=== PATIENT | female | born 1985 | race Caucasian/White ===

== ENCOUNTER 2017-05-10 15:44 | Emergency (ER) | payer MEDICAID ==
[~2017-05-10 15:44] MED LIST: ACE3 PO; ACE325 PO; AUG500 PO; AUG875 PO; CHOL100052 PO; CIPR-344 PO; CYC10 PO; GAB300 PO; HYDR1TAB PO; IBU600 PO; IBU800 PO; LEV100 PO; LEV125 PO; LEV175 PO; LEV2I PO; LEVO112T43 PO; LEVO150T72 PO; LOR5 PO; LOR5/325 PO; ONDA2VIA22 IV; ONDA4TAB PO; ONDA4VIA IJ; OSE75 PO; PER PO; PREN-67 PO; SENN-284 PO; [UNRECOGNIZED DRUG - CODE] IV; birth control patch
[2017-05-10] MEDS ORDERED: NS(*) 0.9% 1000 ML BAG 1,000 ML IV ONE (15:55)
[2017-05-10] MEDS ORDERED: ONDANSETRON 4 MG/2 ML VIAL IVP ONE (15:55)
--- NOTE | 2017-05-10 15:57 | ER Report ---
History and Physical Time Seen By MD: 15:55 Hx. of Stated Complaint: LUQ PAIN FOR 2 DAYS HPI/ROS CHIEF COMPLAINT: Epigastric right upper quadrant pain HISTORY OF PRESENT ILLNESS: Otherwise healthy 30 0 FEMRosalinda comes emergency Department today with complaint of epigastric and right upper quadrant pain that started several hours prior to presentation after she had she has had this in the past mostly after she eats patient describes the pain in the epigastric area is sharp stabbing localized radiation across the abdomen no right lower no left lower she is currently menstruating last menstrual cycle prior to was 28 days ago patient denies any vaginal bleeding or discharge denies any nausea vomiting or diarrhea no additional complaints at this time REVIEW OF SYSTEMS: Respiratory: No cough, no dyspnea. Cardiovascular: No chest pain, no palpitations. Gastrointestinal: Right upper and epigastric abdominal pain Musculoskeletal: No back pain. Remainder of the 14 system rev: Yes Allergies: Coded Allergies: No Known Allergies (Verified Allergy, Mild, 02/06/17) Home Meds Active Scripts Levothyroxine Sodium (LEVOTHYROXINE SODIUM) 0.125 Mg Tab, 1 TAB PO DAILY, #90 TAB 3 Refills Prov:DORCAS CHOWDHURY MD 02/13/17 Discontinued Reported Medications [ control patch] No Conflict Check 02/10/17 Cholecalciferol (Vitamin D3) (VITAMIN D) 1,000 Unit Tablet, 1000 UNIT PO DAILY 02/07/17 Discontinued Scripts Oseltamivir Phosphate (TAMIFLU) 75 Mg Cap, 75 MG PO DAILY for 10 Days, #10 CAP 0 Refills Prov:DORCAS CHOWDHURY MD 04/12/17 Ciprofloxacin Hcl (CIPRO) 500 Mg Tablet, 500 MG PO BID for 7 Days, #14 TAB 0 Refills DO NOT TAKE ZOFRAN WHILE TAKING THIS MEDICATION Prov:DORCAS CHOWDHURY MD 02/08/17 Ondansetron (ZOFRAN ODT) 4 Mg Tab.rapdis, 4 MG PO Q6H Y for NAUSEA/VOMITING, # 20 TAB.GERMAIN 0 Refills Prov:JEET PADILLA MD 02/06/17 Reviewed Nurses Notes: Yes Old Medical Records Reviewed: Yes Hx Smoking: No Smoking Status: Never Smoker, Former Smoker Exposure to Second Hand Smoke?: No Hx Substance Use Disorder: No Hx Alcohol Use: No Constitutional Vital Sign - Last 24 Hours 05/10/17 05/10/17 05/10/1718 15:49 15:50 15:59 16:00 Temp 98.1 Pulse 82 70 Resp 20 B/P (MAP) 131/87 (102) 131/87 120/87 (98) Pulse Ox 96 94 O2 Delivery Room Air 05/10/17 05/10/17 05/10/17 16:14 16:30 17:00 Pulse 61 B/P (MAP) 119/77 (91) 100/64 (76) Pulse Ox 94 Physical Exam General Appearance: The patient is alert, has no immediate need for airway protection and no current signs of toxicity. [ ] Eyes: Pupils equal and round no injection. Respiratory: Chest is non tender, lungs are clear to auscultation. Cardiac: regular rate and rhythm [ ] Gastrointestinal: Pain with mild to moderate palpation of the right upper quadrant and epigastric area mild guarding no rebound no masses otherwise unremarkable exam Musculoskeletal: Neck: Neck is supple and non tender. Extremities have full range of motion and are non tender. Skin: No rashes or lesions. [ ] DIFFERENTIAL DIAGNOSIS: After history and physical exam differential diagnosis was considered for pancreatitis gallstone pancreatitis gastritis Medical Decision Making Data Points Result Diagram: 05/10/17 1601 05/10/17 1601 Laboratory Hematology Test 05/10/17 15:47 05/10/17 16:01 Urine Color Yellow Urine Clarity Slightly-cloudy Urine pH 6.0 pH (4.8-9.5) Urine Specific [place] 1.023 Urine Protein Negative mg/dL (NEGATIVE) Urine Glucose (UA) Negative mg/dL (NEGATIVE) Urine Ketones Negative mg/dL (NEGATIVE) Urine Blood Negative (NEGATIVE) Urine Nitrite Negative (NEGATIVE) Urine Bilirubin Negative (NEGATIVE) Urine Urobilinogen 2.0 mg/dL (0.2-1.9) Urine Leukocyte Esterase Negative (NEGATIVE) Urine RBC 1 /HPF (0-2/HPF) Urine WBC 2 /HPF (0-5/HPF) Urine Squamous Epithelial Cells Many /LPF (</=FEW) Urine Bacteria Negative /HPF (NONE-FEW) Urine Mucus Few /HPF (NONE-FEW) Urine HCG, Qualitative Negative (NEGATIVE) Red Blood Count 5.02 M/uL (4.17-5.56) Mean Corpuscular Volume 83.3 fL (80.0-96.0) Mean Corpuscular Hemoglobin 28.6 pg (26.0-33.0) Mean Corpuscular Hemoglobin Concent 34.4 g/dL (32.0-36.0) Red Cell Distribution Width 14.5 % (11.5-14.5) Mean Platelet Volume 7.8 fL (7.2-11.1) Neutrophils (%) (Auto) 56.7 % (39.4-72.5) Lymphocytes (%) (Auto) 30.5 % (17.6-49.6) Monocytes (%) (Auto) 9.4 % (4.1-12.4) Eosinophils (%) (Auto) 2.2 % (0.4-6.7) Basophils (%) (Auto) 1.2 % (0.3-1.4) Nucleated RBC Relative Count (auto) 0.0 /100WBC Neutrophils # (Auto) 4.1 K/uL (2.0-7.4) Lymphocytes # (Auto) 2.2 K/uL (1.3-3.6) Monocytes # (Auto) 0.7 K/uL (0.3-1.0) Eosinophils # (Auto) 0.2 K/uL (0.0-0.5) Basophils # (Auto) 0.1 K/uL (0.0-0.1) Nucleated RBC Absolute Count (auto) 0.00 K/uL Prothrombin Time 13.1 seconds (12.0-14.4) Prothromb Time International Ratio 0.99 Activated Partial Thromboplast Time 31 seconds (23-35) Sodium Level 136 mmol/L (137-145) Potassium Level 3.7 mmol/L (3.5-5.0) Chloride Level 100 mmol/L (98-107) Carbon Dioxide Level 24 mmol/L (22-31) Blood Urea Nitrogen 16 mg/dl (7-18) Creatinine 0.90 mg/dl (0.52-1.04) Glomerular Filtration Rate Calc > 60.0 Random Glucose 76 mg/dl (75-110) Calcium Level 9.1 mg/dl (8.4-10.2) Total Bilirubin 0.2 mg/dl (0.2-1.3) Aspartate Amino Transf (AST/SGOT) 30 U/L (0-35) Alanine Aminotransferase (ALT/SGPT) 50 U/L (0-56) Alkaline Phosphatase 85 U/L (0-126) Total Protein 7.5 gm/dl (6.3-8.2) Albumin 4.1 g/dl (3.5-5.0) Lipase 135 U/L (23-300) Serum Alcohol < 10 mg/dl Chemistry Test 05/10/17 15:47 05/10/17 16:01 Urine Color Yellow Urine Clarity Slightly-cloudy Urine pH 6.0 pH (4.8-9.5) Urine Specific [place] 1.023 Urine Protein Negative mg/dL (NEGATIVE) Urine Glucose (UA) Negative mg/dL (NEGATIVE) Urine Ketones Negative mg/dL (NEGATIVE) Urine Blood Negative (NEGATIVE) Urine Nitrite Negative (NEGATIVE) Urine Bilirubin Negative (NEGATIVE) Urine Urobilinogen 2.0 mg/dL (0.2-1.9) Urine Leukocyte Esterase Negative (NEGATIVE) Urine RBC 1 /HPF (0-2/HPF) Urine WBC 2 /HPF (0-5/HPF) Urine Squamous Epithelial Cells Many /LPF (</=FEW) Urine Bacteria Negative /HPF (NONE-FEW) Urine Mucus Few /HPF (NONE-FEW) Urine HCG, Qualitative Negative (NEGATIVE) White Blood Count 7.2 k/uL (4.5-11.0) Red Blood Count 5.02 M/uL (4.17-5.56) Hemoglobin 14.4 g/dL (12.0-16.0) Hematocrit 41.8 % (34.0-47.0) Mean Corpuscular Volume 83.3 fL (80.0-96.0) Mean Corpuscular Hemoglobin 28.6 pg (26.0-33.0) Mean Corpuscular Hemoglobin Concent 34.4 g/dL (32.0-36.0) Red Cell Distribution Width 14.5 % (11.5-14.5) Platelet Count 188 K/uL (150-450) Mean Platelet Volume 7.8 fL (7.2-11.1) Neutrophils (%) (Auto) 56.7 % (39.4-72.5) Lymphocytes (%) (Auto) 30.5 % (17.6-49.6) Monocytes (%) (Auto) 9.4 % (4.1-12.4) Eosinophils (%) (Auto) 2.2 % (0.4-6.7) Basophils (%) (Auto) 1.2 % (0.3-1.4) Nucleated RBC Relative Count (auto) 0.0 /100WBC Neutrophils # (Auto) 4.1 K/uL (2.0-7.4) Lymphocytes # (Auto) 2.2 K/uL (1.3-3.6) Monocytes # (Auto) 0.7 K/uL (0.3-1.0) Eosinophils # (Auto) 0.2 K/uL (0.0-0.5) Basophils # (Auto) 0.1 K/uL (0.0-0.1) Nucleated RBC Absolute Count (auto) 0.00 K/uL Prothrombin Time 13.1 seconds (12.0-14.4) Prothromb Time International Ratio 0.99 Activated Partial Thromboplast Time 31 seconds (23-35) Glomerular Filtration Rate Calc > 60.0 Calcium Level 9.1 mg/dl (8.4-10.2) Total Bilirubin 0.2 mg/dl (0.2-1.3) Aspartate Amino Transf (AST/SGOT) 30 U/L (0-35) Alanine Aminotransferase (ALT/SGPT) 50 U/L (0-56) Alkaline Phosphatase 85 U/L (0-126) Total Protein 7.5 gm/dl (6.3-8.2) Albumin 4.1 g/dl (3.5-5.0) Lipase 135 U/L (23-300) Serum Alcohol < 10 mg/dl Coagulation Test 05/10/17 16:01 Prothrombin Time 13.1 seconds Prothromb Time International Ratio 0.99 Activated Partial Thromboplast Time 31 seconds Toxicology Test 05/10/17 16:01 Serum Alcohol < 10 mg/dl Urinalysis Test 05/10/17 15:47 Urine Color Yellow Urine Clarity Slightly-cloudy Urine pH 6.0 pH (4.8-9.5) Urine Specific [place] 1.023 Urine Protein Negative mg/dL (NEGATIVE) Urine Glucose (UA) Negative mg/dL (NEGATIVE) Urine Ketones Negative mg/dL (NEGATIVE) Urine Blood Negative (NEGATIVE) Urine Nitrite Negative (NEGATIVE) Urine Bilirubin Negative (NEGATIVE) Urine Urobilinogen 2.0 mg/dL (0.2-1.9) Urine Leukocyte Esterase Negative (NEGATIVE) Urine RBC 1 /HPF (0-2/HPF) Urine WBC 2 /HPF (0-5/HPF) Urine Squamous Epithelial Cells Many /LPF (</=FEW) Urine Bacteria Negative /HPF (NONE-FEW) Urine Mucus Few /HPF (NONE-FEW) Urine HCG, Qualitative Negative (NEGATIVE) ED Course/Re-evaluation ED Course ED clinical course 32-year-old female with epigastric pain concerning for gallbladder disease potential pancreatitis or gallstone pancreatitis ultrasound was negative lab are completely normal however the ultrasound showed some fecal retention in the transverse colon a follow-up KUB was performed shows significant amount of retained stool we'll start her on a laxative and follow- up with primary care for outpatient workup Decision to Disposition Date: May 10, 2017 Decision to Disposition Time: 17:31 Depart Departure Latest Vital Signs Vital Signs Date Time Temp Pulse Resp B/P (MAP) Pulse Ox O2 Delivery O2 Flow Rate FiO2 05/10/17 17:00 100/64 (76) 05/10/17 16:14 61 94 05/10/17 15:50 98.1 20 Room Air Impression: Primary Impression: Constipation Condition: Improved Disposition: HOME OR SELF-CARE Referrals: DORCAS CHOWDHURY MD 5 Days New Scripts Polyethylene Glycol 3350 (MIRALAX) 17 Gm Powd.pack 17 GM PO 2-3XD for 7 Days, #60 PKT Prov: ANJU BAILEY MD 05/10/17 Patient Instructions: Constipation (DC) ANJU BAILEY MD May 10, 2017 15:57
[2017-05-10 16:19] LABS: PLATELET COUNT, AUTOMATED 188 K/uL (150-450)
[2017-05-10 16:24] LABS: INR 0.99
[2017-05-10 17:00] VITALS: BP 100/64
--- NOTE | 2017-05-10 17:07 | RADIOLOGY IMAGING REPORT ---
FACILITY: [facility] PATIENT NAME: Terra Polanco : 1985 MR: [id number] V: [id number] EXAM DATE: ORDERING PHYSICIAN: ANJU BAILEY TECHNOLOGIST: Location: [facility] Patient: Terra Polanco : 1985 Visit/Account:[id number] Date of Sevice: 05/10/2017 Exam type: CHEST PA AND LAT History: Left upper quadrant pain Comparison: October 18, 2009. Findings: The lungs are free of acute effusions, infiltrates or edema. There is no evidence of a pneumothorax or pneumomediastinum. The cardiac silhouette is normal in size. IMPRESSION: 1. No acute cardiac pulmonary process is seen Report Dictated By: Kelly Kumar MD at 05/10/2017 4:36 PM Report E-Signed By: Kelly Kumar MD at 05/10/2017 4:38 PM WSN:[email or web address]
--- NOTE | 2017-05-10 17:22 | RADIOLOGY IMAGING REPORT ---
FACILITY: [facility] [place] PATIENT NAME: Terra Polanco : 1985 MR: [id number] V: [id number] EXAM DATE: ORDERING PHYSICIAN: ANJU BAILEY TECHNOLOGIST: Location: [facility] Patient: Terra Polanco : 1985 Visit/Account:[id number] Date of Sevice: 05/10/2017 EXAMINATION: Limited right upper quadrant ultrasound Additional Pertinent history: Right upper quadrant pain. COMPARISON STUDIES: 07/16/2007. FINDINGS: Gallbladder: no stones, sludge, wall thickening or pericholecystic fluid. Patient was tender during t he exam. Liver: Normal size and echotexture. No focal abnormality and a smooth surface. Portal vein is patent. No ascites. Common duct: normal 3.1 mm. Pancreas: Normal Right kidney: Right kidney again shows a stable appearing cyst measuring 1.4 cm. Right kidney is othe rwise unremarkable. Proximal IVC/Aorta: negative IMPRESSION: No acute abnormality. The gallbladder and biliary system are normal. Patient was tender during the ex am. Report Dictated By: Gurmeet Akhtar at 05/10/2017 5:16 PM Report E-Signed By: Gurmeet Akhtar at 05/10/2017 5:18 PM WSN:[id number]
[2017-05-10] MEDS ORDERED: POLY17PO25 PO (17:33)
--- NOTE | 2017-05-10 17:44 | RADIOLOGY IMAGING REPORT ---
FACILITY: [facility] PATIENT NAME: Terra Polanco : 1985 MR: [id number] V: [id number] EXAM DATE: ORDERING PHYSICIAN: ANJU BAILEY TECHNOLOGIST: Location: [facility] [place] Patient: Terra Polanco : 1985 Visit/Account:[id number] Date of Sevice: 05/10/2017 Examination: KUB SINGLE VIEW ABDOMEN Comparison: None. History: Abdominal pain. Findings: Spine bowel gas pattern is unremarkable. Small to moderate amount of stool predominantly wi thin the ascending and transverse colon. No soft tissue calcifications. No evidence of mass effect or organomegaly. Osseous structures are intact. IMPRESSION: Negative supine abdomen. Report Dictated By: Ian Barillas MD at 05/10/2017 5:39 PM Report E-Signed By: Ian Barillas MD at 05/10/2017 5:41 PM WSN:[id number]
== END 2017-05-10 17:54 | disposition home or self-care (01) ==
LOC: ER 15:49
DX: K59.00 Constipation, unspecified (principal); Z87.891 Personal history of nicotine dependence
CPT/HCPCS: 71046; 74018; 76705; 81001; 81025; 83690; 85025; 85610; 85730; 96361; 96374; 99284; G0480; J2405; J7030; 80320; 82040; 82247; 82310; 82374; 82435; 82565; 82947; 84075; 84132; 84155; 84295; 84450; 84460; 84520

== ENCOUNTER → 2017-08-03 | Outpatient (CLI) | payer MEDICAID ==
[~2017-08-03] MED LIST changes: +IBUP800T37 PO; +LEV112 PO; +POLY17PO25 PO
[2017-08-03 17:03] LABS: PLATELET COUNT, AUTOMATED 231 K/uL (150-450)
== END ==
LOC: LAB 16:34
PROVIDERS: ATTEND Nurse Practitioner Family
DX: R53.83 Other fatigue (principal); E55.9 Vitamin D deficiency, unspecified; G47.62 Sleep related leg cramps; E03.9 Hypothyroidism, unspecified
CPT/HCPCS: 36415; 82040; 82247; 82306; 82310; 82374; 82435; 82565; 82607; 82728; 82746; 82947; 83540; 83550; 83735; 84075; 84132; 84155; 84295; 84443; 84450; 84460; 84520; 85025

== ENCOUNTER → 2017-08-11 | Outpatient (CLI) | payer MEDICAID ==
[~2017-08-11] MED LIST changes: +NITR-105 PO
== END ==
LOC: LAB 11:00
PROVIDERS: ATTEND Nurse Practitioner Family
DX: R01.2 Other cardiac sounds (principal); R30.0 Dysuria; B96.89 Other specified bacterial agents as the cause of diseases classified elsewhere
CPT/HCPCS: 81001; 87077; 87088; 87186; 87210; 87491; 87591

== ENCOUNTER → 2017-10-24 | Outpatient (CLI) | payer OTHER ==
[~2017-10-24] MED LIST changes: +PREN-127 PO
== END ==
LOC: LAB 15:36
PROVIDERS: ATTEND Student in an Organized Health Care Education/Training Program
DX: O99.89 Other specified diseases and conditions complicating pregnancy, childbirth and the puerperium (principal); B96.89 Other specified bacterial agents as the cause of diseases classified elsewhere
CPT/HCPCS: 87088

== ENCOUNTER → 2017-10-31 | Outpatient (CLI) | payer OTHER ==
[~2017-10-31] MED LIST changes: +LEVO150T78 PO
== END ==
LOC: LAB 11:14
PROVIDERS: ATTEND Student in an Organized Health Care Education/Training Program
DX: O99.280 Endocrine, nutritional and metabolic diseases complicating pregnancy, unspecified trimester (principal)
CPT/HCPCS: 36415; 84443

== ENCOUNTER 2017-11-05 10:29 | Emergency (ER) | payer OTHER ==
--- NOTE | 2017-11-05 10:44 | ER Report ---
History and Physical Time Seen By MD: 10:44 Hx. of Stated Complaint: CHEST CONGESTION, WITH COUGH CHEST HURTS WHEN I COUGH MUCOUS IS THICK, AND I FEEL LIKE I'M GOING TO VOMIT. HPI/ROS CHIEF COMPLAINT: cough HISTORY OF PRESENT ILLNESS: This is a 32 year old female. She is 15 weeks along in . She has cough for a couple of days now. Thick secretions, not very productive. Has tightness in her chest, centrally, worsens with coughing and has some muscle pain in abdomen on flanks with coughing as well. Has runny nose and scratchy throat. No fevers or chills noted. No nausea or vomiting. Has no problem with bowel or bladder. Denies vaginal bleeding, leakage of fluid, or contractions. Allergies: Coded Allergies: No Known Allergies (Verified Allergy, Mild, 11/05/17) Home Meds Active Scripts Levothyroxine Sodium (LEVOTHYROXINE SODIUM) 150 Mcg Tablet, 150 MCG PO QDAY, #30 TAB 6 Refills Prov:MARGARITA RODAS 10/31/17 Reported Medications Vits W-Ca,Fe,Fa(<1MG) ( VITAMINS) 1 Each Tablet, 1 EACH PO DAILY, TAB 10/13/17 Discontinued Scripts Nitrofurantoin Monohyd/M-Cryst (MACROBID 100 MG CAPSULE) 100 Mg Capsule, 100 MG PO BID for 7 Days, #14 CAPSULE 0 Refills Prov:MARGARITA RODAS DO 10/24/17 Levothyroxine Sodium (LEVOTHYROXINE SODIUM) 0.112 Mg Tab, 1 TAB PO QDAY, #90 TAB Prov:ALEX MCDERMOTT APRN PRISON CLASSIFICATION COUNSELOR-C 08/04/17 Reviewed Nurses Notes: Yes Hx Smoking: No Smoking Status: Never Smoker, Former Smoker Exposure to Second Hand Smoke?: No Hx Substance Use Disorder: No Hx Alcohol Use: No Constitutional Vital Sign - Last 24 Hours 11/05/17 11/05/17 11/05/17 11/05/17 10:32 10:33 11:00 11:05 Temp 97.5 Pulse 74 74 72 74 Resp 15 14 16 B/P (MAP) 103/69 103/69 (80) 102/68 (79) Pulse Ox 96 96 96 96 O2 Delivery Room Air Room Air Room Air 11/05/17 12:08 Pulse 77 Resp 12 B/P (MAP) 87/64 (72) Pulse Ox 96 O2 Delivery Room Air Physical Exam General Appearance: Alert, no acute distress. Eyes: Pupils equal and round no injection. ENT: Normal oral mucosa. Moist mucous membranes. Posterior oropharynx is mildly erythematous, but no exudates or hypertrophy. Has small amount of clear post nasal drainage. Tympanic membranes are normal. Nasal mucosa is erythematous with some mucous present. Neck: Neck is supple and non tender. Anterior cervical small lymphadenopathy. Respiratory: Lungs have good air movement throughout with some rhonchi, but no wheezing or rales. Cardiac: regular rate and rhythm Gastrointestinal: Abdomen is soft and non tender, nondistended. Musculoskeletal: Extremities have full range of motion. Skin: No rashes or lesions. DIFFERENTIAL DIAGNOSIS: After history and physical exam differential diagnosis was considered for signs of upper respiratory infection, but with increased mucous, cough and chest tightness, will look for pulmonary infectious process. Medical Decision Making EKG/Imaging Imaging 2 VIEWS CHEST INDICATION: Cough and chest tightness. COMPARISON: 05/10/2017. FINDINGS: Cardiomediastinal silhouette and pulmonary vessels within normal limits. There is no focal infiltrate or lobar consolidation. There is no pneumothorax or pleural effusion. No nodule. Upper abdomen is unremarkable. No acute bony abnormality. IMPRESSION: 1. No acute cardiopulmonary process. Report Dictated By: Gurmeet Akhtar at 11/05/2017 12:06 PM ED Course/Re-evaluation ED Course Reviewed imaging results, with no sign of pneumonia. Recommended Tylenol as needed. Increased fluids, rest, and use of guaifenesin for cough. heart tones done, 130s and reactive appearing. Decision to Disposition Date: Nov 05, 2017 Decision to Disposition Time: 12:23 Depart Departure Latest Vital Signs Vital Signs Date Time Temp Pulse Resp B/P (MAP) Pulse Ox O2 Delivery O2 Flow Rate FiO2 11/05/17 12:08 77 12 87/64 (72) 96 Room Air 11/05/17 10:32 97.5 Impression: Primary Impression: Upper respiratory infection Condition: Stable Disposition: HOME OR SELF-CARE Referrals: MARGARITA RODAS DO (PCP) Patient Instructions: Upper Respiratory Infection (ED) Additional Instructions: Increase fluid intake. Take Tylenol as needed for pain or fever. Take Guaifenesin (Mucinex) twice a day as needed for cough. Follow-up with your doctor in the next 1-2 weeks for re-evaluation. Problem Qualifiers Primary Impression: Upper respiratory infection URI type: unspecified viral URI Qualified Codes: J06.9 - Acute upper respiratory infection, unspecified ELIZABETH GEE MD Nov 05, 2017 10:43
[2017-11-05 12:08] VITALS: BP 87/64
[2017-11-05] MEDS ORDERED: ACETAMINOPHEN 500 MG TAB PO ONE (12:10)
--- NOTE | 2017-11-05 12:11 | RADIOLOGY IMAGING REPORT ---
FACILITY: [facility] PATIENT NAME: Terra Polanco : 1985 MR: [id number] V: [id number] EXAM DATE: ORDERING PHYSICIAN: ELIZABETH GEE TECHNOLOGIST: Location: [facility] [place] Patient: Terra Polanco : 1985 Visit/Account:[id number] Date of Sevice: 11/05/2017 2 VIEWS CHEST INDICATION: Cough and chest tightness. COMPARISON: 05/10/2017. FINDINGS: Cardiomediastinal silhouette and pulmonary vessels within normal limits. There is no focal infiltrate or lobar consolidation. There is no pneumothorax or pleural effusion. No nodule. Upper abdomen is unremarkable. No acute bony abnormality. IMPRESSION: 1. No acute cardiopulmonary process. Report Dictated By: Gurmeet Akhtar at 11/05/2017 12:06 PM Report E-Signed By: Gurmeet Akhtar at 11/05/2017 12:08 PM WSN:[id number]
== END 2017-11-05 12:35 | disposition home or self-care (01) ==
LOC: ER 10:45
DX: O98.812 Other maternal infectious and parasitic diseases complicating pregnancy, second trimester (principal); Z3A.15 15 weeks gestation of pregnancy
CPT/HCPCS: 71046; 99283

== ENCOUNTER → 2017-12-04 | Outpatient (CLI) | payer OTHER ==
--- NOTE | 2017-12-04 10:54 | RADIOLOGY IMAGING REPORT ---
FACILITY: [facility] PATIENT NAME: Terra Polanco : 1985 MR: [id number] V: [id number] EXAM DATE: ORDERING PHYSICIAN: MARGARITA RODAS TECHNOLOGIST: Location: [facility] [place] Patient: Terra Polanco : 1985 Visit/Account:[id number] Date of Sevice: 12/04/2017 [facility] OB ANATOMICAL SURVEY INDICATION: Anatomy screen COMPARISON: None available FINDINGS: Single intrauterine living gestation is present in vertex position. Heart rate within the fetus manish ures 142 bpm. The placenta is anterior without previa. KETURAH 8.9 cm. BPD 4.3 cm, 19 weeks one day HC 16.4 cm, 19 weeks two days Abdominal circumference 14.4 cm, 19 weeks six days Femur length 3 cm, 19 weeks three days Estimated gestational age based on ultrasound 19 weeks three days. Estimated gestational age based on last menstrual period 18 weeks six days. Estimated weight 296 g. Normal intracranial structures, nose and lips, normal four-chamber heart view, normal outflow tracts, normal stomach, four extremities visualized, normal kidneys, normal bladder, expected three-vessel c ord. Normal spine and cord insertion. Normal facial profile. Per the technologist the cord appear to wrap around the neck. IMPRESSION: 1. Single, living, intrauterine gestation at 19 weeks 3 days based on ultrasound in vertex position. Estimated gestational age based on last menstrual period is 18 weeks six days. 2. The cord appears to encircle/wrap around the fetuses neck. Short-term ultrasound follow-up should be considered to evaluate for persistence of this finding. 3. KETURAH measuring 8.9 cm is likely an underestimate. The KETURAH appears subjectively normal. The manish ured KETURAH of 8.9 cm is less than 5th percentile for gestational age. Recommend the patient return for repeat KETURAH for a more accurate measurement and to exclude the possib ility of oligohydramnios. 4. Otherwise unremarkable anatomic survey. Report Dictated By: Howard Baron MD at 12/04/2017 10:35 AM Report E-Signed By: Howard Baron MD at 12/04/2017 10:51 AM WSN:[email or web address]
== END ==
LOC: RAD 08:04
PROVIDERS: ATTEND Student in an Organized Health Care Education/Training Program
DX: Z02.9 Encounter for administrative examinations, unspecified (principal)

== ENCOUNTER → 2017-12-20 | Outpatient (CLI) | payer OTHER | LOC: LAB 11:26 | PROVIDERS: ATTEND Student in an Organized Health Care Education/Training Program | DX: O99.820 Streptococcus B carrier state complicating pregnancy (principal) | CPT/HCPCS: 36415; 84443 ==

== ENCOUNTER → 2018-02-01 | Outpatient (CLI) | payer OTHER ==
[~2018-02-01] MED LIST changes: +CYCL10TA29 PO; +DIPH0.5D12 IM; +RHO(150015 IM; +VALA500T66 PO; +Work Note
== END ==
LOC: LAB 08:11
PROVIDERS: ATTEND Student in an Organized Health Care Education/Training Program
DX: Z02.9 Encounter for administrative examinations, unspecified (principal)

== ENCOUNTER → 2018-02-01 | Outpatient (CLI) | payer OTHER ==
[2018-02-01 09:53] LABS: PLATELET COUNT, AUTOMATED 234 K/uL (150-450)
== END ==
LOC: LAB 07:45
PROVIDERS: ATTEND Obstetrics & Gynecology
DX: Z34.92 Encounter for supervision of normal pregnancy, unspecified, second trimester (principal); O99.282 Endocrine, nutritional and metabolic diseases complicating pregnancy, second trimester
CPT/HCPCS: 36415; 82950; 84443; 85025

== ENCOUNTER → 2018-03-03 | Outpatient (CLI) | payer OTHER ==
[~2018-03-03] VITALS: Ht 157.5 cm; Wt 72.6 kg
[~2018-03-03] MED LIST changes: +DLR(*) 1000 ML BAG 1,000 ML IV PRN; +LR(*) 1000 ML BAG 1,000 ML IV PRN
[2018-03-03 05:20] VITALS: BP 106/66; Ht 157.5 cm; Wt 72.6 kg
[2018-03-03 05:59] LABS: PLATELET COUNT, AUTOMATED 230 K/uL (150-450)
--- NOTE | 2018-03-03 08:05 | History & Physical ---
History of Present Illness Age of Patient: 32 : 4 Para or TPAL: 2011 EDC per LMP: May 01, 2018 EDC per U/S: May 01, 2018 Estimated Gestational Age: 31.4 Chief Complaint LLQ abdominal pain. History of Present Illness Seen in OB unit due to LLQ abdominal pain that started last evening at about 2200 hours, gradual onset, developed into a constant sharp pain radiating to the left flank and back. The pain improved with a hot shower and with lying down and being inactive, and is worse with any physical activity. She denies fever, chills, constipation, diarrhea, melena, hematochezia, hematuria, dysuria, urinary urgency or frequency. She's noted good activity and few uterine contractions, as well as no vaginal discharge, blood, mucous, or fluid leakage. is uncomplicated, except that she is seeing a Physical Therapist for some bilateral hip pains due to joint relaxation. She tried a single dose of Cyclobenzaprine for that a couple of weeks ago, which was ineffective. History Patient's Blood Type: O Negative Group B Strep Screen: Unknown Obstetrical History: 2 normal vaginal births at term. Past Medical History: Hx hypothyroidism, taking Levothyroxine 150 mcg daily. Hx genital HSV, inactive at present, prophylaxis after 36 weeks planned. Allergies: Coded Allergies: No Known Allergies (Verified Allergy, Mild, 11/05/17) Social History: , on work leave due to hip pain as above. No tobacco, alcohol or illicit drugs. Family History: FH: cancer maternal grandfather (prostate cancer ) maternal uncle (lymphoma ) FH: cirrhosis MOTHER, , Age:46 FH: diabetes mellitus FATHER maternal grandfather FH: hypercholesterolemia FATHER Med Rec Home Meds Active Scripts [Work Note] No Conflict Check Patient seen in the office. Please excuse from work today. Prov:KENTON SOTO DNP, ASSISTANT ELEMENTARY TEACHER-BC 01/30/18 Levothyroxine Sodium (LEVOTHYROXINE SODIUM) 150 Mcg Tablet, 150 MCG PO QDAY, #30 TAB 6 Refills Prov:MARGARITA RODAS DO 10/31/17 Reported Medications Vits W-Ca,Fe,Fa(<1MG) ( VITAMINS) 1 Each Tablet, 1 EACH PO DAILY, TAB 10/13/17 Discontinued Scripts Cyclobenzaprine Hcl (CYCLOBENZAPRINE HCL) 10 Mg Tablet, 0.5-1 TAB PO BID PRN for PAIN, #15 TAB 0 Refills Prov:KENTON SOTO DNP, ASSISTANT ELEMENTARY TEACHER-BC 01/30/18 Valacyclovir Hcl (VALTREX) 500 Mg Tablet, 500 MG PO BID for 3 Days, #6 TAB-CAP 0 Refills Prov:MARGARITA RODAS DO 01/04/18 Review of Systems Constitutional: No Fever, No Weight Loss, No Weight Gain, No Chills, No Night Sweats, No Other Eyes: No Vision Change, No Loss of Vision, No Photophobia, No Other ENT: No Hearing Loss, No Sinus Congestion, No Sore Throat, No Ear Ache, No Tinnitus, No Other Cardiovascular: No Chest Pain, No Palpitations, No Orthostatic Hypotension, No Other Respiratory: No Shortness of Breath, No Cough, No Wheezing, No Other Gastrointestinal: No Nausea, No Vomiting, No Diarrhea, No Dysphagia, No Constipation, No Hematochezia, No Melena; Abdominal Pain Musculoskeletal: Impaired Mobility (due to hip pain as above); No Pain, No Sprain, No Strain Psychiatric: No Depression, No Anxiety, No Other Exam General Exam Vital Signs Vital Signs Date Time Temp Pulse Resp B/P (MAP) Pulse Ox O2 Delivery O2 Flow Rate FiO2 03/03/18 05:20 97.8 70 16 106/66 (79) 97 Room Air General Apperance: Alert/Awake/No Acute Distress Neuro: No Gross deficits Eyes: Normal Extraocular Movement & Vison ENT: Normal, Moist Mucous Membranes, Posterior Pharynx Clear Neck: No Masses Cardiovascular: Regular Rate and Rhythm Respiratory: No Respiratory Distress, Clear to Auscultation Abdomen: Gravid - Non-Tender, Active Bowel Sounds, Other (mild, poorly localizing LLQ tenderness without rebound, about 7-10 cm above the L inguinal fold; no CVA tenderness) Extremities: No Cyanosis,Clubbing or Edema, Reflexes (1-2+/4 and symmetric); No Tender Calves Integumentary: Skin Intact without Lesions or Rash Psychological: Alert & Oriented X3, Appropriate Mood & Affect Fetus Heart Tones: 140 FHT Category: I Medical Decision Making Data Points Result Diagram: 03/03/18 0552 03/03/18 0552 VTE Prophylasis: Adult Pharmacological Contraindicati: Pt at Low Risk for VTE Mechanical Contraindications: Pt at Low Risk for VTE Assessment and Plan Problems: (1) LLQ abdominal pain Assessment & Plan: Patient is aware that there appears to be no major pathology at this time, but that she might have round ligament syndrome or possibly an undetected L inguinal hernia. I recommended application of heat to the LLQ and use of the lower abdominal maternity support belt that she already has. I also recommended how to take proper doses of Tylenol. She will keep her appointment with her Physical Therapist in 2 days, and her appointment with Dr. Major on March 07. She will return sooner if her pain becomes worse. (2) with 31 completed weeks gestation Copies to: MARGARITA RODAS DO; ZENIA MAJOR MD ; DIEGO ACOSTA MD Mar 03, 2018 08:05
== END ==
LOC: L&D 04:36 → OB 04:36 → UNDOADMIN 04:36 → UNDODISIN 07:35 → EDSTATUS 03-07 11:01
PROVIDERS: ATTEND Obstetrics & Gynecology
DX: O62.0 Primary inadequate contractions (principal); Z3A.31 31 weeks gestation of pregnancy
CPT/HCPCS: 36415; 36416; 81001; 82040; 82247; 82310; 82374; 82435; 82565; 82947; 82948; 84075; 84132; 84155; 84295; 84450; 84460; 84520; 85025

== ENCOUNTER → 2018-03-13 | Outpatient (CLI) | payer OTHER ==
[2018-03-03 05:20] VITALS: BMI 29.3
[~2018-03-13] MED LIST changes: -DLR(*) 1000 ML BAG 1,000 ML IV PRN; -LR(*) 1000 ML BAG 1,000 ML IV PRN
== END ==
LOC: LAB 14:34
PROVIDERS: ATTEND Surgery
DX: D22.9 Melanocytic nevi, unspecified (principal)
CPT/HCPCS: 88305

== ENCOUNTER → 2018-03-27 | Outpatient (RCR) | payer OTHER ==
--- NOTE | 2017-12-27 17:56 | PT INITIAL EVALUATION ---
MEDICAL DIAGNOSIS: M25.551 B hip pain TREATMENT DIAGNOSIS: B hip pain DATE OF ONSET: 10/04/17 SUBJECTIVE: Terra Polanco presents to PT for B hip pain, insidious onset 2 months ago during her third gestation. She denies a history of hip dysplasia or low back/hip injuries. CINDY 05/01/18. B posterior and lateral hip and IT band area pain is 5/10 at the end of her work shift, 7/10 at night, sharp ache, disrupting sleep. She complains of pubic symphysis stabbing pain with car and bed transfers. She denies Valsalva maneuvers creating extremity paresthesia.. REHAB PROBLEM LIST: Increased Pain, Ligament Laxity, Decreased Strength, Altered Gait Gait PREVIOUS MEDICAL HISTORY: L scapular pulled muscle pain as a 21 y/o. OCCUPATION: Environmental Services, [employer] - [place]. OBJECTIVE: Posture: R anterior and L posterior ilium, superior L pubic rami. ROM: AROM lumbar spine WNL with LBP end ROM flexion, R side bend. Hip PROM WNL B. Strength: Core strength <3/5. Palpation: Painful with light palpation throughout the lumbo sacral area, worse at the SI joint line B. High tone and painful at the piriformis muscles and gluts, lumbar extensors. Special Tests: Positive SI tests for symptom reproduction. Gait: Apparent long R LE. ASSESSMENT: Terra Polanco presents with SI dysfunction from 3rd gestation ligament laxity. She did well with gentle mobilization to correct postural alignment, and is started on a SI stabilization HEP. Pain was reduced. Short Term Goals One month: Terra rates LBP 3/10 at the end of her work shift, at night. Two months: Terra rates LBP 2/10 at the end of her work shift, at night, even pelvic posture. Three months: Terra rates LBP 2/10 with work, 3/10 at night, even pelvic posture. April,: Terra rates LBP 2/10 with work, at night, even pelvic posture. Patient's Goals Get rid of or reduce LBP with picking up trash cans, car transfers, end of work shift and at night. PLAN: Patient to be seen for Manual Therapy Ice/Heat Range of Motion Spinal Stabilization Stretching Neuromuscular Re-ed Posture/Body mechanics Gait Trg/Balance Trg Home Exercise Program 2x/Week for to 05/01/18 Thank you for this referral. If you have any questions, comments, or concerns about this report or plan, please contact me at . [facility]
--- NOTE | 2018-01-04 08:30 | PT PLAN OF CARE ---
Physician: Dr. Alfred Jaramillo Patient is being seen: twice Therapist: Joanne Kumar, PT Medical Diagnosis: M25.551 B hip pain Treatment Diagnosis: B hip pain Date of Onset: 10/04/17 Date of Initial Evaluation: 12/27/17 Date patient was last seen: 01/03/18 Number of treatments: 2 Number of cancellations/No shows: 0 INTERVENTIONS: Manual Therapy/STM/MET Ice/Heat Home Exercise Program GOALS: All not met: One month: Terra rates LBP 3/10 at the end of her work shift, at night. Two months: Terra rates LBP 2/10 at the end of her work shift, at night, even pelvic posture. Three months: Terra rates LBP 2/10 with work, 3/10 at night, even pelvic posture. April,: Terra rates LBP 2/10 with work, at night, even pelvic posture. PATIENT'S GOAL: Get rid of or reduce LBP with picking up trash cans, car transfers, end of work shift and at night. Status of Patient's Goals: Not met Patient Compliance: Excellent Prognosis: Excellent Reasons for continuing therapy: S: Terra was crying during her session yesterday due to SI/hip pain after her 8 hour work shift. I requested she consider 4 hour work shifts to reduce acute inflammation. O: Gluts tendons, IT bands, SI posterior joint lines are all acutely painful with light palpation and edematous. Pubic rami and PSIS landmarks are even. A/P: Terra Polanco would benefit from 4 hour work shifts, with ability to sit 10 min. per hour of work to rest her lumbopelvic region. Would you consider this for work restrictions, send to Francis Truong at [facility]? If you agree, we'll continue PT 2x/week to CINDY. Thank you. [facility]
--- NOTE | 2018-02-02 16:38 | PT PLAN OF CARE ---
Physician: Dr. 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 (progressing, but stopped work) Two months: Terra rates LBP 2/10 at the end of her work shift, at night (not met), even pelvic posture (not met). Three months: Terra rates LBP 2/10 with work, 3/10 at night, even pelvic posture. April,: Terra rates LBP 2/10 with work, at night, even pelvic posture. PATIENT'S GOAL: Get rid of or reduce LBP with picking up trash cans (not met), car transfers (progressing, end of work shift (house work) and at night (not met). Patient Compliance: Excellent Prognosis: Excellent Reasons for continuing therapy: S: Terra has gone onto FMLA due to L-S/SI/pubic symphysis pain with lifting trash cans, cleaning rooms. She has pain at night still, and can awaken with her SI/pubic symphysis "out". Posture: R anterior and L posterior ilium, inferior R rami and superior L pubic rami. ROM: AROM lumbar spine WNL with LBP end ROM flexion. Hip PROM WNL B. Strength: Core strength 3-/5. Palpation: Painful in the lumbar extensors, L piriformis muscle. Special Tests: Positive SI tests for symptom reproduction. Mobility: LBP, pubic symphysis pain with bed mobility. A/P: Terra Polanco is improving core strength, still is dealing with laxity in her third trimester. She'll bring her SI belt next visit and we'll try bracing. If you agree, we'll continue 2x/week to CINDY, working pain management, stabilization strengthening, postural muscle balancing. Thank you. [facility]
[2018-03-03 05:20] VITALS: BMI 29.3
--- NOTE | 2018-03-27 13:21 | PT PLAN OF CARE ---
Physician: Dr. 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 Two months: Terra rates LBP 2/10 at night, even pelvic posture (both not met). 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 April,: Terra rates LBP 2/10 with housework, at night, even pelvic posture. PATIENT'S GOAL: Get rid of or reduce LBP with picking up trash cans, car transfers (met), house work and at night. (All not met) Patient Compliance: Excellent Prognosis: Excellent Reasons for continuing therapy: S: Terra relates her pelvis continues to "slip out" with house work and if she sleeps crooked at night. She rates B SI.posterior hip pain 3-7/10. Car transfers are not painful, but she slips out of alignment with sleeping, bending wtih house work. Posture: Terra continues to presents predominantly with a R anterior ilium, but has also presented with sacral torsion, rami down slip. ROM: AROM lumbar spine WNL with LBP end ROM flexion. Strength: Core strength 3+/5. Palpation: Terra continues to have R>L piriformis spasm, high tone, pain, also lumbar erector spinae pain and tightness. Special Tests: SI joints are more hypermobile then most women I work with in the third trimester. Terra's SI belt helps somewhat to hold alignment. Mobility: LBP with bed mobility. A/P: Terra Polanco continues to have SI joint hypermobility from relaxin hormone, creating pain and altered pelvic posture, joint creep at night while asleep. If you agree, we'll continue with conservative PT until delivery, 2x/week. Thank you. CHRISTIED
== END ==
LOC: PT 12-27 10:16
PROVIDERS: ATTEND Student in an Organized Health Care Education/Training Program
DX: M25.551 Pain in right hip (principal); M25.552 Pain in left hip
CPT/HCPCS: 97162

== ENCOUNTER → 2018-04-02 | Outpatient (CLI) | payer OTHER ==
[2018-03-03 05:20] VITALS: BMI 29.3
== END ==
LOC: LAB 11:10
PROVIDERS: ATTEND Advanced Practice Midwife
DX: R10.2 Pelvic and perineal pain (principal)
CPT/HCPCS: 87070; 87081

== ENCOUNTER → 2018-04-02 | Outpatient (CLI) | payer OTHER ==
[2018-03-03 05:20] VITALS: BMI 29.3
== END ==
LOC: LAB 10:53
PROVIDERS: ATTEND Advanced Practice Midwife
DX: R10.30 Lower abdominal pain, unspecified (principal)
CPT/HCPCS: 81001

== ENCOUNTER → 2018-04-15 19:34 | Outpatient (CLI) | payer OTHER ==
[~2018-04-15] VITALS: Ht 157.5 cm; Wt 80.3 kg
[2018-04-15 16:00] VITALS: BP 108/73; Ht 157.5 cm; Wt 80.3 kg
== END | disposition home or self-care (01) ==
LOC: L&D 04-24 15:43 → OB 15:43 → UNDOADMOB 15:43 → OB 15:43 → INTOOBSV 15:43 → OB 16:00 → L&D 18:00 → UNDODISOB 19:34 → L&D 19:34 → EDSTATUS 04-16 15:43
PROVIDERS: ATTEND Obstetrics & Gynecology
DX: O47.1 False labor at or after 37 completed weeks of gestation (principal); Z3A.37 37 weeks gestation of pregnancy
CPT/HCPCS: 59025; 99213

== ENCOUNTER 2018-04-17 11:51 | Inpatient (IN) | payer OTHER ==
[~2018-04-17] VITALS: Ht 160 cm; Wt 83.0 kg
[2018-04-17] MEDS ORDERED: ceFAZolin(*) 2GM/D5W 50ML 50 ML IVPB PRN (12:18)
[2018-04-17] MEDS ORDERED: FAMOTIDINE(*) 20MG/50ML PREMIX 50 ML IVPB PRN (12:18)
[2018-04-17] MEDS ORDERED: OXYTOCIN 30 UNIT/D5LR 500 ML 500 ML IV PRN (12:18)
[2018-04-17] MEDS ORDERED: LIDOCAINE/SOD BICARB 8.4% SYR SC PRN (12:20)
[2018-04-17] MEDS ORDERED: fentaNYL CITR 100 MCG/2 ML AMP IVP PRN (12:20)
[2018-04-17] MEDS ORDERED: ONDANSETRON 4 MG/2 ML VIAL IVP PRN (12:20)
[2018-04-17] MEDS ORDERED: BUPIVACAINE 0.25% MPF INJ EPI PRN (12:20)
[2018-04-17] MEDS ORDERED: FENTANYL/ROPIVACAINE 100 ML BAG EPI PRN (12:20)
[2018-04-17] MEDS ORDERED: BUPIVACAINE 0.5% INJ 30ML VIAL EPI PRN (12:20)
[2018-04-17] MEDS ORDERED: LIDOCAINE 1% LOCAL 300 MG/30ML INJ PRN (12:20)
[2018-04-17] MEDS ORDERED: EPIDURAL KEYS XX PRN (12:20)
[2018-04-17] MEDS ORDERED: METOCLOPRAMIDE 10 MG/2 ML SDV IVP PRN (12:20)
[2018-04-17] MEDS ORDERED: LIDOCAINE/PF 2% 200MG/10ML AMP 200 MG/10 ML AMPUL EPI PRN (12:20)
[2018-04-17] MEDS ORDERED: fentaNYL CITR 100 MCG/2 ML AMP IT PRN (12:20)
[2018-04-17] MEDS ORDERED: FLUSH 10 ML SYR IVP PRN (12:20)
[2018-04-17] MEDS ORDERED: LIDO/EPI 2% MPF 1:200,000 20ML EPI PRN (12:20)
[2018-04-17 12:42] LABS: PLATELET COUNT, AUTOMATED 256 K/uL (150-450)
[2018-04-17] MEDS: LR(*) 1000 ML BAG 1,000 ML IV SCH ×2 (13:09→18:20)
--- NOTE | 2018-04-17 14:43 | History & Physical ---
History of Present Illness Age of Patient: 33 : 4 Para or TPAL: 2011 Estimated Gestational Age: 38.0 Chief Complaint Painful contractions. History of Present Illness 33-year-old 4 para 2 at 38 0/7 wga by LMP consistent with early sono presents to clinic for painful contractions. She was checked and found to be 1 cm she was noted to have significant vaginal bleeding she was sent to labor and delivery for further evaluation. Patient continued to have spotting while on labor and delivery and was still enmanuel every 3-5 minutes. Patient reports no loss of amniotic fluid. Good movement. Supra comfortable. Patient has been in and out of clinic and the hospital for the last 3 days.. History Patient's Blood Type: O Negative Group B Strep Screen: Negative Obstetrical History: X 2 Past Medical History: HSV: Taking Valtrex BID for suppression. Hypothyroidism Allergies: Coded Allergies: No Known Allergies (Verified Allergy, Mild, 11/05/17) Social History: , on work leave due to hip pain as above. No tobacco, alcohol or illicit drugs. Family History: FH: cancer maternal grandfather (prostate cancer ) maternal uncle (lymphoma ) FH: cirrhosis MOTHER, , Age:46 FH: diabetes mellitus FATHER maternal grandfather FH: hypercholesterolemia FATHER Med Rec Home Meds Active Scripts Levothyroxine Sodium (LEVOTHYROXINE SODIUM) 150 Mcg Tablet, 150 MCG PO QDAY, #90 TAB 4 Refills Prov:MARGARITA RODAS DO 04/03/18 Valacyclovir Hcl (VALTREX) 500 Mg Tablet, 500 MG PO BID, #120 TAB 0 Refills Prov:ZENIA BRAN MD 03/21/18 [Work Note] No Conflict Check Patient seen in the office. Please excuse from work today. Prov:KENTON SOTO DNP, APPLIANCE REPAIR TECHNICIAN-BC 01/30/18 Reported Medications Vits W-Ca,Fe,Fa(<1MG) ( VITAMINS) 1 Each Tablet, 1 EACH PO DAILY, TAB 10/13/17 Review of Systems All Systems Reviewed/Normal: Yes, Except as Noted Constitutional: No Fever, No Weight Loss, No Weight Gain, No Chills, No Night Sweats, No Other Neurological: No Syncope, No Confusion, No Weakness, No Dizziness, No Slurred Speech, No Other Eyes: No Vision Change, No Loss of Vision, No Photophobia, No Other ENT: No Hearing Loss, No Sinus Congestion, No Sore Throat, No Ear Ache, No Tinnitus, No Other Cardiovascular: No Chest Pain, No Palpitations, No Orthostatic Hypotension, No Other Respiratory: No Shortness of Breath, No Cough, No Wheezing, No Other Gastrointestinal: No Nausea, No Vomiting, No Diarrhea, No Dysphagia, No Constipation, No Early Satiety, No Hematemesis, No Hematochezia, No Melena, No Abdominal Pain, No Other Genitourinary: No Dysuria, No Hematuria, No Urinary Incontinence, No Other Musculoskeletal: No Pain, No Sprain, No Strain, No Impaired Mobility, No Other Psychiatric: No Depression, No Anxiety, No Other Exam General Exam General Apperance: Alert/Awake/No Acute Distress Neuro: No Gross deficits Eyes: Normal Extraocular Movement & Vison ENT: Normal Cardiovascular: Regular Rate and Rhythm Respiratory: No Respiratory Distress Abdomen: Soft, Non-Tender, Non-Distended, Gravid - Non-Tender : Normal Musculoskeletal: No Weakness/Pain Extremities: No Cyanosis,Clubbing or Edema Integumentary: Skin Intact without Lesions or Rash Psychological: Alert & Oriented X3, Appropriate Mood & Affect Vaginal Discharge/Fluid?: Bloody Show, Clear Fluid Cervical Dialation: 3 Cervical Effacement (%): 70 Cervical Consistency: Soft Cervical Position: Mid Station: -2 Uterine Contractions(Q min): 3 Uterine Contraction Strength: Moderate Fetus Estimated Weight(grams): 3000 Heart Tones: 120 Heart Tone Variabilty: Moderate FHT Accelerations: 15X15 FHT Decelerations: None FHT Category: I Medical Decision Making Data Points Result Diagram: 04/17/18 1234 Pre-Admit Course Medical Record Review: Yes VTE Prophylasis: Adult Deep Vein Thrombosis/Pulmonary: No Assessment and Plan SHIPPING ASSOCIATE Assessment: Stable SHIPPING ASSOCIATE Plan: Routine Labor/Induct Care Problems: (1) 38 weeks gestation of (2) Active labor at term Assessment & Plan: Patient made cervical change from 3 cm with significant vaginal bleeding but a normal reactive NST. Enmanuel regularly admit patient for labor will perform amniotomy and expect vaginal delivery as needed epidural for pain control if necessary or desired. MARGARITA RODAS DO Apr 17, 2018 14:43
--- NOTE | 2018-04-17 19:50 | Anesthesia OB Pre-Anes Eval ---
History of Present Illness Anesthesia Start Date: Apr 17, 2018 Anesthesia Start Time: 18:10 Complications: None known EDC: May 01, 2018 : 4 Para: 2 Pain Ratin Heart Tones: WNL Result Diagram: 04/17/18 1234 Height (Inches): 62 Weight (Pounds): 177 BMI (kg/m2): 32 Past Medical History Medical History: no pertinent history Surgical History: no surgical history Previous Anesthesia: epidural Attended Childbirth Classes?: No Hx Anesthesia Reactions: No Hx Family Anesthesia Reaction: No Current Medications: pitocin Home Meds Active Scripts Levothyroxine Sodium (LEVOTHYROXINE SODIUM) 150 Mcg Tablet, 150 MCG PO QDAY, #90 TAB 4 Refills Prov:MARGARITA RODAS DO 04/03/18 Valacyclovir Hcl (VALTREX) 500 Mg Tablet, 500 MG PO BID, #120 TAB 0 Refills Prov:ZENIA BRAN MD 03/21/18 [Work Note] No Conflict Check Patient seen in the office. Please excuse from work today. Prov:KENTON SOTO DNP, BEEF BREAKER-BC 01/30/18 Reported Medications Vits W-Ca,Fe,Fa(<1MG) ( VITAMINS) 1 Each Tablet, 1 EACH PO DAILY, TAB 10/13/17 Allergies: Coded Allergies: No Known Allergies (Verified Allergy, Mild, 11/05/17) Anesthesia OB ROS Neurological: No migraines/headaches, No seizures, No neuropathy Eyes ROS: other (glasses) ENT: Denies Tooth caps, Denies Loose teeth, Denies Chipped teeth, Denies Dentures, Denies Bridges, Denies Retainers, Denies Veneers, Denies Implants, Denies Tongue ring Pulmonary: No asthma, No smoker (pks/day/yrs) Airway Class: ll Cardiovascular ROS: No edema, No arrhythmia GI ROS: clear liquids Last Solids Date: Apr 17, 2018 Last Solids Time: 07:00 ROS: Herpes (states she has been taking Valtrex); No STD(s), No Liver Disease, No Renal Disease Endocrine ROS: No diabetes, No gestational diabetes, No thyroid disorder Musculoskeletal ROS: No low back pain, No low back injury, No scoliosis ASA Classification: 2 Assessment and Plan Anesthesia Plan: CSE Assessment Past Medical, Surgical, Family and Obstetric Histories reviewed. Please see ACOG chart. Epidural anesthesia risks, complications and benefits explained to patient's satisfaction for labor and vaginal delivery and/or section. General anesthesia risks and benefits explained to patient's satisfaction. Questions invited, none asked. DANNY TOWNSEND CRNA Apr 17, 2018 19:50
--- NOTE | 2018-04-17 19:53 | Procedure Note ---
Anesthetic Placement Note Anesthesia Plan: CSE Permit for Anesthesia Signed: Yes Anesthesia Technique: Patient Sitting Anesthesia Prep: Chlorhexidine Interspace: L 3-4 Local Anesthetic: 1% Lidocaine, 25 Gauge Needle Amount Local - cc's: 2 Anesthesia Needle: 17g Touhy/Schliff Anesthesia Attempts: 1 Loss of Resistance: Air Depth of STEFFI (cm): 5 Epidural Needle Placement: No CSF, No Blood, No Parasthesia Intrathecal Needle: 27 Gauge Pencan Cerebral Spinal Fluid: Yes, Clear Catheter Insertion (cm): 7 Catheter Type: Sarkar - Spring Wound Epidural Dressing: Tegaderm, Tape, Adhesive [place] Anesthesia Tray: Lot Number ([id number]), Expiration Date (2019-02-02), Reference Number ([id number]) Anesthesia Medications: Intrathecal Dose: mcg Fentanyl (15), mg Marcaine MPF (1.75 mg), Time (1823) Epidural Test Dose: 1.5 Lido/Epi (1:200,000), Dose - mL (3), Time (1845), Negative Epidural Loading Dose: 0.2% Ropivicaine, With Fentanyl 2mcg/ml, Dose - ml (5), Time (1846) Epidural Infusion: 0.2% Ropivicaine, With Fentanyl 2mcg/ml, Start Time: (1846) Epidural Pump Setting: Bolus Dose - mL (5), Lockout - Minutes (20), Maintenance Rate - mL/hr (6), Maximum per Hour - mL (21) Complications: None Comment: Pt. tolerated procedure very well, able to maintain position thru contractions. Became comfortable within 1-2 contractions after CSE. Encouraged to sleep. DANNY TOWNSEND CRNA Apr 17, 2018 19:53
--- NOTE | 2018-04-17 19:54 | Anesthesia Progress Note ---
Progress/Maintenance Anesthesia Note Date: Apr 17, 2018 Anesthesia Note Time: 19:30 Pain Intensity: 1 Pump: On Pump Rate (ML/HR): 6 Sensory Level: T-12 Motor Level: Bending Knees-Bilateral Dilatation: 8 Position: Left, Tilt Assessment and Plan Assessment Remains comfortable, resting. DANNY TOWNSEND CRNA Apr 17, 2018 19:54
--- NOTE | 2018-04-17 20:05 | Anesthesia Progress Note ---
Progress/Maintenance Anesthesia Note Date: Apr 17, 2018 Anesthesia Note Time: 20:00 Pain Intensity: 2 Pump: On Pump Rate (ML/HR): 6 Sensory Level: T-12 Motor Level: Bending Knees-Bilateral Dilatation: 10 Position: Semi-Fowlers Drug Bolus: 0.5% Marcaine (5 ml), Other (Fentenyl 85 mcgs) Assessment and Plan Assessment Pt. now complete and going to start pushing. DANNY TOWNSEND CRNA Apr 17, 2018 20:05
--- NOTE | 2018-04-17 20:36 | Anesthesia Progress Note ---
Progress/Maintenance Anesthesia Note Date: Apr 17, 2018 Anesthesia Note Time: 20:30 Pain Intensity: 0 Pump: Off Motor Level: Bending Knees-Bilateral Dilatation: 10 Position: Semi-Fowlers Assessment and Plan Assessment No further medication was given. Pt. was able to push well. Excellent tolerance of delivery. Empty syringe attached to epidural catheter and RN agrees to remove with ambulation. Patient instructed the first ambulation is to be with help of nursing staff. Instructed to preform deep knee bends at bedside before walking. Anesthesia Stop Day: Apr 17, 2018 Anesthesia Stop Time: 20:30 DANNY TOWNSEND CRNA Apr 17, 2018 20:36
[2018-04-17] MEDS ORDERED: GLYCERIN/WITCH HAZEL LEAF 1 PK TOP PRN (20:40)
[2018-04-17] MEDS ORDERED: HYDROCORTISONE 2.5% CR 30GM TB PR PRN (20:40)
[2018-04-17] MEDS ORDERED: MAGNESIUM HYDROXIDE* 30ML UDCP PO PRN (20:40)
[2018-04-17] MEDS ORDERED: ACETAMINOPHEN 325 MG TAB PO PRN (20:40)
[2018-04-17] MEDS ORDERED: LANOLIN OINT 7 GM TUBE TP PRN (20:40)
[2018-04-17] MEDS ORDERED: BENZOCAINE 20% 60 ML BTL TP PRN (20:40)
--- NOTE | 2018-04-17 20:43 | OB Delivery Note ---
Delivery Note Vaginal Delivery Type: Spont. Vaginal Delivery Delivery Date: Apr 17, 2018 Delivery Time: 20:22 Estimated Gestational Age(wks): 38.0 Length of Labor Stage I (hrs): 6 Length of Labor Stage II (hrs): 0.5 Labor Stage III (minutes): 5 Delivery Anesthesia: Epidural Infant Sex: Female [place] Apgars: 1 Minute (8), 5 Minute (9) Delivery Complications: Nuchal Cord (X1) Parts Counter Associate in Attendence: MARGARITA Khanna DO Apr 17, 2018 20:43
[2018-04-17 21:43] VITALS: BP_SYST 110; BP_SYST 99; BP_DIAS 54; BP_DIAS 71; Ht 160 cm; Wt 83.0 kg
[2018-04-17] MEDS: DOCUSATE CALCIUM 240 MG CAP PO SCH (22:10)
[2018-04-17] MEDS: IBUPROFEN 800 MG TAB PO SCH (22:10)
[2018-04-17 22:57] VITALS: BP 106/65
--- NOTE | 2018-04-17 23:39 | DELIVERY NOTE ---
DELIVERY DATE: April 17, 2018 SURGEON: Alfred Jaramillo DO ANESTHESIA: Epidural. PREOPERATIVE DIAGNOSES 1. A 33-year-old 4, para 2, at 38-0/7 weeks' gestation. 2. Labor. POSTOPERATIVE DIAGNOSES 1. A 33-year-old 4, para 2, at 38-0/7 weeks' gestation. 2. Labor. 3. Delivered. PROCEDURE Spontaneous vaginal delivery with no laceration repair. FINDINGS Live-born female at 2222 of 04/17/2018, Apgars of 8 and 9, with weight pending at time of dictation. Three-vessel cord, intact placenta over an intact perineum. ESTIMATED BLOOD LOSS 300 mL. PATHOLOGY None. COMPLICATIONS None known. CONDITION Stable x2. Mother and infant to remain in the LDRP. COUNTS Correct for all needles, laps, sponges and instruments. LABOR SUMMARY Patient is a 33-year-old 4, para 2, who presented to clinic with a chief complaint of painful contractions. She was checked and found to be 1 cm. She was reevaluated and found to be 3 cm with significant bloody show. It was determined that with the patient's regular contraction pattern and cervical change, she was deemed in labor. She was admitted. She underwent amniotomy with clear amniotic fluid. She did progress to 10 cm over the course of six hours. With patient progressing rapidly, she did request an epidural for pain control and was given one accordingly. Once complete, trial pushes were performed and she was noted to be making quick descent of the station, and so delivery team was called and assembled. DELIVERY SUMMARY Patient was placed in the dorsal lithotomy position, prepped and draped in the usual sterile manner. Upon maternal pushing, 's head delivered in a controlled manner, followed by the anterior shoulders with gentle downward motion, posterior shoulders with gentle upward motion, and the remainder of the infant's body delivered spontaneously. Mouth and nose were bulb-suctioned. The cord was clamped x2 and cut by the infant's father, at which time the infant then remained on the maternal abdomen, where it was vigorously cleaned and dried. Next, cord blood gases were obtained. The placenta delivered spontaneously with gentle cord traction. Oxytocin was infused to help the uterine tone. The uterus was massaged and deemed firm. Upon inspection of the perineum, vagina, cervix, and labia, it was noted there were no lacerations present. The patient was cleaned, the labor bed was reassembled, and the mother and were allowed to continue to león. IBRAHIMA
[2018-04-18 03:33] VITALS: BP 112/58
[2018-04-18] MEDS: APAP/HYDROCODONE 325/5 TAB PO PRN ×4 (05:24→20:27)
[2018-04-18 07:30] VITALS: BP 103/59
[2018-04-18] MEDS: IBUPROFEN 800 MG TAB PO SCH ×2 (07:30→14:06)
[2018-04-18] MEDS: DOCUSATE CALCIUM 240 MG CAP PO SCH ×2 (10:21→20:27)
--- NOTE | 2018-04-18 10:25 | OB/GYN Progress Note ---
OB Subjective Progress Notes Subjective Doing good this morning. Reports she is still uncomfortable in the hips post delivery. Bleeding appropriate. Tolerating regular diet. Ambulatory in room only. . GI: NEG Nausea, NEG Vomiting, NEG Flatus, NEG Bowel Movement : Voiding Well, Vaginal Bleeding, Moderate Pain: Mild, Tolerating PO Pain Meds Neurological: No Headache, No Other Eyes: No Visual Disturbances OB Objective Physical Exam Vital Signs Date Time Temp Pulse Resp B/P (MAP) Pulse Ox O2 Delivery O2 Flow Rate FiO2 04/18/18 07:30 98.2 85 18 103/59 (74) 94 Room Air Intake and Output 04/18/18 07:00 Intake Total 2200 ml Output Total 1270 ml Balance 930 ml Intake IV Total 2200 ml Output Urine Total 1270 ml # Voids 2 General Appearance: Alert/Awake/No Acute Distress Neurological: No Gross deficits Eyes: Normal Extraocular Movement & Vison Cardiovascular: Normal Rhythm & Peripheral Pulses, Regular Rate and Rhythm Respiratory: No Respiratory Distress Abdomen: Soft, Non-Tender, Non-Distended, Fundus Firm Extremities: No Cyanosis,Clubbing or Edema Integumentary: Skin Intact without Lesions or Rash Psychological: Alert & Oriented X3, Appropriate Mood & Affect Result Diagram: 04/18/18 0618 Assessment and Plan NURSE LDR Assessment: Stable NURSE LDR Plan: Routine Post- Care Problems: (1) 38 weeks gestation of Status: Resolved (2) Active labor at term Status: Resolved Assessment & Plan: Plan to monitor for additional 24 hours. Continue post plan. MARGARITA RODAS DO Apr 18, 2018 10:25
--- NOTE | 2018-04-18 10:27 | Anesthesia Post Eval Note ---
Anesthesia Post Eval Note Vital Signs Date Time Temp Pulse Resp B/P (MAP) Pulse Ox O2 Delivery O2 Flow Rate FiO2 04/18/18 07:30 98.2 85 18 103/59 (74) 94 Room Air Pt able to participate in Eval: Yes Cardiovascular Status: Satisfactory Respiratory Status: Satisfactory Pain Managment: Satisfactory PO Nausea/Vomiting: Satisfactory Temperature Management: Satisfactory Mental Status: Satisfactory, Alert, Oriented X3 Post-Op Hydration Status: Satisfactory, Tolerating PO Well, Voiding w/o Difficulty Anesthesia Type: CSE Anesthesia Tolerance: Tolerated procedure well without apparent anesthetic complications. LP site clear, no redness or edema. Denies headache or any residual paresthesia. Vital Signs Stable, Patient comfortable and condition stable. DANNY TOWNSEND CRNA Apr 18, 2018 10:27
[2018-04-18] MEDS ORDERED: LOR5/325 PO (10:36)
[2018-04-18] MEDS ORDERED: IBUP800T37 PO (10:36)
--- NOTE | 2018-04-18 10:40 | OB/GYN Discharge Summary ---
Discharge Summary Reason for Hosp/Final Diag: (1) 38 weeks gestation of Status: Resolved (2) Active labor at term Status: Resolved Hospital Course & Plan: Pt presented in labor with cervical change. She underwent amniotomy and progressed to complete and delivered with out any difficulty. Pt remained in the hospital for 2 days post . Lates Vital Signs Vital Signs Date Time Temp Pulse Resp B/P (MAP) Pulse Ox O2 Delivery O2 Flow Rate FiO2 04/18/18 07:30 98.2 85 18 103/59 (74) 94 Room Air Weight (Pounds): 183 Result Diagram: 04/18/18617 Condition: Improved Discharge: Home Home Meds Active Scripts Hydrocodone Bit/Acetaminophen (HYDROCODON-ACETAMINOPHEN 5-325) 1 Each Tablet, 1- 2 EACH PO Q4H PRN for PAIN, #20 TAB 0 Refills Prov:MARGARITA RODAS DO 04/18/18 Levothyroxine Sodium (LEVOTHYROXINE SODIUM) 150 Mcg Tablet, 150 MCG PO QDAY, #90 TAB 4 Refills Prov:MARGARITA RODAS DO 04/03/18 Valacyclovir Hcl (VALTREX) 500 Mg Tablet, 500 MG PO BID, #120 TAB 0 Refills Prov:ZENIA BRAN MD 03/21/18 [Work Note] No Conflict Check Patient seen in the office. Please excuse from work today. Prov:KENTON SOTO DNP, INVESTIGATION MANAGER-BC 01/30/18 Reported Medications Vits W-Ca,Fe,Fa(<1MG) ( VITAMINS) 1 Each Tablet, 1 EACH PO DAILY, TAB 10/13/17 Follow up with: [facility] [phone], Dr. Rodas [phone] Follow up in: 6 wks PP or PO, 2 wks PO MARGARITA RODAS DO Apr 18, 2018 10:40
[2018-04-18 12:10] VITALS: BP 105/62
[2018-04-18 17:00] VITALS: BP 111/64
[2018-04-18 19:35] VITALS: BP 114/65
[2018-04-19] MEDS: APAP/HYDROCODONE 325/5 TAB PO PRN ×2 (00:41→05:25)
[2018-04-19] MEDS: IBUPROFEN 800 MG TAB PO SCH (00:41)
[2018-04-19 04:00] VITALS: BP 94/57
[2018-04-19] MEDS ORDERED: DIPHTH/TETANUS/ACEL. PERTUSSIS IM ONLY ONE (09:00)
[2018-04-19] MEDS ORDERED: INFLUENZA VIRUS VAC 0.5ML SYR IM ONLY ONE (09:00)
[2018-04-19] MEDS ORDERED: IBUPROFEN 800 MG TAB PO SCH (09:00)
[2018-04-19] MEDS ORDERED: MEASLES,MUMP,RUBELLA VAC 0.5ML SUBQ ONE (09:00)
== END 2018-04-19 07:55 | disposition home or self-care (01) | DRG 806 ==
LOC: OB 11:51
PROVIDERS: ADMIT Student in an Organized Health Care Education/Training Program; ATTEND Student in an Organized Health Care Education/Training Program
PROC: 10E0XZZ Delivery of Products of Conception, External Approach (ICD-10-PCS; principal; 2018-04-17)
PROC: 10907ZC Drainage of Amniotic Fluid, Therapeutic from Products of Conception, Via Natural or Artificial Opening (ICD-10-PCS; 2018-04-17)
PROC: 3E0334Z Introduction of Serum, Toxoid and Vaccine into Peripheral Vein, Percutaneous Approach (ICD-10-PCS; 2018-04-18)
DX: O67.8 Other intrapartum hemorrhage (principal); O36.0130 Maternal care for anti-D [Rh] antibodies, third trimester, not applicable or unspecified; Z37.0 Single live birth; Z3A.38 38 weeks gestation of pregnancy; Z87.42 Personal history of other diseases of the female genital tract
CPT/HCPCS: 36415; 85025; 85027; 85461; 86703; 86850; 86900; 86901; J2405; J2590; J2791; J7120

== ENCOUNTER 2018-04-27 13:45 | Outpatient (RCR) | payer OTHER ==
[2018-03-03 05:20] VITALS: BMI 29.3
--- NOTE | 2018-04-02 16:14 | PT PLAN OF CARE ---
Physician: Dr. 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 Two months: Terra rates LBP 2/10 at night, even pelvic posture (both not met). 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 April,: Terra rates LBP 2/10 with housework, at night, even pelvic posture. PATIENT'S GOAL: Get rid of or reduce LBP with picking up trash cans, car transfers (met), house work and at night. 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 She rates B SI.posterior hip pain 7-8/10. Car transfers aren't painful, but she slips out of alignment with sleeping, bending with house work. Posture: Terra continues to presents predominantly with a R anterior ilium. ROM: AROM lumbar spine WNL with LBP end ROM flexion. Strength: Core strength 3+/5. Palpation: Terra continues to have R>L piriformis spasm, high tone, pain, also lumbar erector spinae pain and tightness. Special Tests: SI joints are hypermobile. Terra's SI belt helps somewhat to hold alignment. Mobility: LBP with bed mobility. A/P: Terra Polanco continues to have SI joint hypermobility from relaxin hormone, creating pain and altered pelvic posture, joint creep at night while asleep. If you agree, we'll continue with conservative PT until delivery, 2x/week. Thank you. IBRAHIMA
[2018-05-16] MEDS ORDERED: OSE75 PO (09:29)
--- NOTE | 2018-05-22 11:46 | PT PLAN OF CARE ---
Physician: Dr. 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 Two months: Terra rates LBP 2/10 at night, even pelvic posture (met). Three months: Terra rates LBP 2/10 with house work, at night, even pelvic posture (met). April,: Terra rates LBP 2/10 with housework, at night, even pelvic posture. (met) PATIENT'S GOAL: Get rid of or reduce LBP with car transfers and at night. (met) Patient Compliance: Excellent Prognosis: Excellent Reasons for discontinuing therapy: S: Terra relates her LBP has resolved after one PT session after her delivery. I had her on hold, with the understanding she'd schedule if she needed any more PT. In a phone conversation today, she related she's fine and will return to work next week. O: After gentle manual therapy on 04/27/18, ASIS, PSIS alignment was normalized. A/P: Terra blum improved alignment after her PT session. I'll DC PT. Thank you. IBRAHIMA
== END 2018-04-27 18:00 | disposition home or self-care (01) ==
LOC: PT 13:45
PROVIDERS: ATTEND Student in an Organized Health Care Education/Training Program
DX: M25.551 Pain in right hip (principal); M25.552 Pain in left hip

== ENCOUNTER → 2018-05-30 | Outpatient (CLI) | payer OTHER ==
[2018-04-17 21:43] VITALS: BMI 32.4
== END ==
LOC: LAB 14:00
PROVIDERS: ATTEND Student in an Organized Health Care Education/Training Program
DX: Z02.9 Encounter for administrative examinations, unspecified (principal)

== ENCOUNTER → 2018-06-08 | Outpatient (CLI) | payer OTHER ==
[2018-04-17 21:43] VITALS: BMI 32.4
== END ==
LOC: LAB 12:20
PROVIDERS: ATTEND Student in an Organized Health Care Education/Training Program
DX: E03.9 Hypothyroidism, unspecified (principal)
CPT/HCPCS: 36415; 84443

== ENCOUNTER → 2018-09-18 | Outpatient (CLI) | payer SELFPAY ==
[2018-04-17 21:43] VITALS: BMI 32.4
[~2018-09-18] MED LIST changes: -DIPH0.5D12 IM; +DIPH0.5S2 IM; +DOXY-229 PO; +LEVO125T77 PO
[2018-09-18 12:48] LABS: PLATELET COUNT, AUTOMATED 230 K/uL (150-450)
== END ==
LOC: LAB 11:53
PROVIDERS: ATTEND Advanced Practice Midwife
DX: Z11.8 Encounter for screening for other infectious and parasitic diseases (principal); Z11.3 Encounter for screening for infections with a predominantly sexual mode of transmission; E03.9 Hypothyroidism, unspecified; R10.2 Pelvic and perineal pain; B95.1 Streptococcus, group B, as the cause of diseases classified elsewhere
CPT/HCPCS: 36415; 84443; 85025; 87070; 87077; 87088; 87186; 87491; 87591

== ENCOUNTER 2018-10-12 10:48 | Emergency (ER) | payer OTHER ==
[2018-04-17 21:43] VITALS: Wt 62.6 kg
[~2018-10-12 10:48] MED LIST changes: -CEPH-13 PO; -PHEN200T32 PO
[2018-10-12] MEDS ORDERED: NS(*) 0.9% 1000 ML BAG 1,000 ML IV ONE (10:56)
--- NOTE | 2018-10-12 11:02 | ER Report ---
History and Physical Time Seen By MD: 10:58 Hx. of Stated Complaint: PATIENT REPORTS LOWER ABDOMINAL PAIN THAT STARTED LAST NIGHT. SHE WAS SEEN BY HER PRIMARY CARE PROVIDER AND SENT TO THE ER HPI/ROS CHIEF COMPLAINT: Abdominal pain HISTORY OF PRESENT ILLNESS: Patient is referred to us from the [facility] for abdominal pain midline and also over the pelvic region pain is 6 out of 10 in worsens. Patient states the symptoms again last night. Per report from Kenton Soto, urinalysis was positive for nitrites positive for leuks and blood. There was some concerns about the possibility of a kidney stone the javi bro presents to the emergency department for further evaluation. Patient is mostly complaining of pain in the suprapubic area but did have earlier some left flank pain. No nausea no vomiting no fevers or chills. No diarrhea. She denies any new vaginal discharge or bleeding. She does report blood with urination last evening. Results of urinalysis in the outpatient clinic as follows show urine pH of 6, specific gravity of 1.030, 100 mg of protein, trace ketones, large blood, positive for nitrites and large leuk esterase. A urine culture was also sent by the primary care provider. REVIEW OF SYSTEMS: Constitutional: No fever, no chills. Eyes: No discharge. ENT: No sore throat. Cardiovascular: No chest pain, no palpitations. Respiratory: No cough, no shortness of breath. Gastrointestinal: Suprapubic abdominal pain Genitourinary: No hematuria. Musculoskeletal: No back pain. Skin: No rashes. Neurological: No headache. Allergies: Coded Allergies: No Known Allergies (Verified Allergy, Mild, 11/05/17) Home Meds Active Scripts Cephalexin (KEFLEX) 500 Mg Capsule, 500 MG PO Q6H, #20 CAP 0 Refills TAKE ONE CAPSULE BY MOUTH EVERY SIX HOURS Prov:DORA ALEXANDER MD 10/12/18 Levothyroxine Sodium (SYNTHROID) 125 Mcg Tablet, 125 MCG PO QDAY, #90 TAB 1 Refill Prov:CRESCENCIO RUBIO CNM 09/21/18 Doxycycline Monohydrate (DOXYCYCLINE MONOHYDRATE) 100 Mg Tablet, 100 MG PO BID for 14 Days, #28 TAB 0 Refills Prov:CRESCENCIO RUBIO CNM 09/18/18 Oseltamivir Phosphate (TAMIFLU) 75 Mg Cap, 75 MG PO BID for 5 Days, #10 CAP 0 Refills Prov:MARGARITA RODAS DO 05/16/18 Ibuprofen (IBUPROFEN) 800 Mg Tablet, 800 MG PO Q8H@0600,1400,2200, #20 TAB 0 Refills Prov:MARGARITA RODAS DO 04/18/18 Hydrocodone Bit/Acetaminophen (HYDROCODON-ACETAMINOPHEN 5-325) 1 Each Tablet, 1- 2 EACH PO Q4H PRN for PAIN, #20 TAB 0 Refills Prov:MARGARIAT RODAS DO 04/18/18 Valacyclovir Hcl (VALTREX) 500 Mg Tablet, 500 MG PO BID, #120 TAB 0 Refills Prov:ZENIA BRAN MD 03/21/18 [Work Note] No Conflict Check Patient seen in the office. Please excuse from work today. Prov:KENTON SOTO DNP, COLOR CONTROL OPERATOR-BC 01/30/18 Reported Medications Vits W-Ca,Fe,Fa(<1MG) ( VITAMINS) 1 Each Tablet, 1 EACH PO DAILY, TAB 10/13/17 Past Medical/Surgical History Past medical history significant for hypothyroidism Hx Smoking: Yes Smoking Status: Former Smoker Exposure to Second Hand Smoke?: No Hx Substance Use Disorder: No Hx Alcohol Use: No Constitutional Vital Sign - Last 24 Hours 10/12/18 10/12/18 10/12/18 10/12/18 10:53 11:30 11:35 12:05 Temp 97.9 Pulse 76 60 59 Resp 20 B/P (MAP) 108/85 108/74 (85) Pulse Ox 95 96 98 O2 Delivery Room Air 10/12/18 10/12/18 12:35 12:50 Pulse 63 B/P (MAP) 112/71 (85) Pulse Ox 94 Physical Exam General Appearance: The patient is alert, has no immediate need for airway protection and no signs of toxicity. Eyes: Pupils equal and round no pallor or injection. ENT, Mouth: Mucous membranes are moist. Respiratory: There are no retractions, lungs are clear to auscultation. Cardiovascular: Regular rate and rhythm. Gastrointestinal: Suprapubic abdominal pain negative flank pain Neurological: Awake and alert Skin: Warm and dry, no rashes. Musculoskeletal: Neck is supple non tender. Extremities are nontender, nonswollen and have full range of motion. Medical Decision Making Data Points Result Diagram: 8/9/19 1055 10/12/18 1055 Laboratory Hematology Test 10/12/18 10:55 White Blood Count 8.0 k/uL (4.5-11.0) Red Blood Count 4.95 M/uL (4.17-5.56) Hemoglobin 14.6 g/dL (12.0-16.0) Hematocrit 41.8 % (34.0-47.0) Mean Corpuscular Volume 84.5 fL (80.0-96.0) Mean Corpuscular Hemoglobin 29.6 pg (26.0-33.0) Mean Corpuscular Hemoglobin Concent 35.0 g/dL (32.0-36.0) Red Cell Distribution Width 14.6 % (11.5-14.5) H Platelet Count 211 K/uL (150-450) Mean Platelet Volume 7.6 fL (7.2-11.1) Neutrophils (%) (Auto) 72.1 % (39.4-72.5) Lymphocytes (%) (Auto) 16.0 % (17.6-49.6) L Monocytes (%) (Auto) 9.7 % (4.1-12.4) Eosinophils (%) (Auto) 1.7 % (0.4-6.7) Basophils (%) (Auto) 0.5 % (0.3-1.4) Nucleated RBC Relative Count (auto) 0.2 /100WBC Neutrophils # (Auto) 5.8 K/uL (2.0-7.4) Lymphocytes # (Auto) 1.3 K/uL (1.3-3.6) Monocytes # (Auto) 0.8 K/uL (0.3-1.0) Eosinophils # (Auto) 0.1 K/uL (0.0-0.5) Basophils # (Auto) 0.0 K/uL (0.0-0.1) Nucleated RBC Absolute Count (auto) 0.02 K/uL Chemistry Test 10/12/18 10:55 Sodium Level 138 mmol/L (137-145) Potassium Level 4.3 mmol/L (3.5-5.0) Chloride Level 105 mmol/L (98-107) Carbon Dioxide Level 23 mmol/L (22-31) Blood Urea Nitrogen 14 mg/dl (7-18) Creatinine 0.90 mg/dl (0.52-1.04) Glomerular Filtration Rate Calc > 60.0 Random Glucose 90 mg/dl (75-110) Calcium Level 9.3 mg/dl (8.4-10.2) Total Bilirubin 0.6 mg/dl (0.2-1.3) Aspartate Amino Transf (AST/SGOT) 28 U/L (0-35) Alanine Aminotransferase (ALT/SGPT) 34 U/L (0-56) Alkaline Phosphatase 95 U/L (0-126) Total Protein 7.7 g/dl (6.3-8.2) Albumin 4.5 g/dl (3.5-5.0) Lipase 92 U/L (23-300) Human Chorionic Gonadotropin, Qual Negative (NEGATIVE) EKG/Imaging Imaging CT scan consistent with cystitis no evidence of pyelonephritis. ED Course/Re-evaluation ED Course 10/12/2018 11:09:08 am After history and physical exam was performed differential diagnosis was formulated which includes but is not limited to acute pyelonephritis, hemorrhagic cystitis, cystitis, urinary; less likely ovarian torsion less likely STD based on clinical presentation and history. We will give 50 mg of Toradol for pain and start Rocephin 250 mg based on the report of urinalysis Decision to Disposition Date: Oct 12, 2018 Decision to Disposition Time: 12:08 Depart Departure Latest Vital Signs Vital Signs Date Time Temp Pulse Resp B/P (MAP) Pulse Ox O2 Delivery O2 Flow Rate FiO2 10/12/18 12:50 112/71 (85) 10/12/18 12:35 63 94 10/12/18 10:53 97.9 20 Room Air Impression: Primary Impression: Cystitis Condition: Improved Disposition: HOME OR SELF-CARE Referrals: CRESCENCIO RUBIO CNM (PCP) New Scripts Cephalexin (KEFLEX) 500 Mg Capsule 500 MG PO Q6H, #20 CAP 0 Refills TAKE ONE CAPSULE BY MOUTH EVERY SIX HOURS Prov: DORA ALEXANDER MD 10/12/18 Patient Instructions: Urinary Tract Infection in Women (DC) DORA ALEXANDER MD Oct 12, 2018 11:02
[2018-10-12 11:05] LABS: PLATELET COUNT, AUTOMATED 211 K/uL (150-450)
[2018-10-12] MEDS ORDERED: KETOROLAC 15 MG/ML VIAL IVP ONE (11:10)
[2018-10-12] MEDS ORDERED: cefTRIAXone 250 MG VIAL IVP ONE (11:10)
[2018-10-12] MEDS ORDERED: IOPAMIDOL 76% 100 ML INFUS BTL 100 ML ONE (11:25)
--- NOTE | 2018-10-12 12:09 | RADIOLOGY IMAGING REPORT ---
FACILITY: [facility] [place] PATIENT NAME: Terra Bah : 1985 MR: [id number] V: [id number] EXAM DATE: ORDERING PHYSICIAN: DORA ALEXANDER TECHNOLOGIST: Location: [facility] Patient: Terra Bah : 1985 Visit/Account:[id number] Date of Sevice: 10/12/2018 CT ABDOMEN PELVIS W/ CON COMPARISON: 02/10/2017 HISTORY: left flank pain, suprapubic pain. TECHNIQUE: Axial CT abdomen and pelvis with intravenous contrast. Coronal and sagittal reformats. O ne of the following dose optimization techniques was utilized in the performance of this exam: autom ated exposure control; adjustment of the mA and/or kV according to patient size; or use of iterative reconstruction technique. Specific details can be referenced in the facility's radiology CT exam ope rational policy. CONTRAST: 80 mL of IV Isovue-370. FINDINGS: LUNG BASES: Negative. LIVER: Negative. BILIARY: Negative. SPLEEN: Negative. PANCREAS: Negative. ADRENALS: Negative. KIDNEYS: Minimally complicated cyst in the right kidney containing a small amount of dependent debri s or calcification, otherwise simple in appearance, measuring 1.8 cm on series 2 image 37.. No hydron ephrosis or evidence of pyelonephritis. No appreciable kidney or ureter stones on this contrast-enhan angela CT. GI/MESENTERY: There is no bowel wall thickening, mass, or obstruction. The appendix is normal. There is no localized fat stranding, ascites or fluid collection.. VASCULAR: Negative. LYMPH NODES: Negative. BLADDER: Mild diffuse bladder wall thickening. No perivesical fat stranding with the appearance is s uspicious for cystitis despite the degree of underdistention. PELVIC ORGANS: Normal CT appearance of the uterus and left ovary. Simple appearing cyst or dominant follicle in the right ovary measuring 1.4 cm. BONES: Negative. OTHER: Negative. IMPRESSION: 1. Findings which are most consistent with cystitis. No evidence of coexistent pyelonephritis or ure teral obstruction. 2. Benign, minimally complicated cyst in the right kidney. 3. 1.4 cm cyst or dominant follicle in the right ovary. Report Dictated By: Ismael Hazel at 10/12/2018 11:40 AM Report E-Signed By: Ismael Hazel at 10/12/2018 12:01 PM WSN:[id number]
[2018-10-12] MEDS ORDERED: PHEN200T32 PO (12:13)
[2018-10-12] MEDS ORDERED: CEPH-13 PO (12:13)
[2018-10-12 12:50] VITALS: BP 112/71
== END 2018-10-12 12:54 | disposition home or self-care (01) ==
LOC: ER 10:59
DX: N30.90 Cystitis, unspecified without hematuria (principal)
CPT/HCPCS: 74177; 83690; 84703; 85025; 96361; 96374; 96375; 99284; J0696; J1885; J7030; Q9967; 82040; 82247; 82310; 82374; 82435; 82565; 82947; 84075; 84132; 84155; 84295; 84450; 84460; 84520

== ENCOUNTER → 2018-10-12 | Outpatient (CLI) | payer SELFPAY ==
[2018-04-17 21:43] VITALS: BMI 32.4
[~2018-10-12] MED LIST changes: +CEPH-13 PO; +PHEN200T32 PO
== END ==
LOC: LAB 10:33
PROVIDERS: ATTEND Nurse Practitioner Primary Care
DX: N39.0 Urinary tract infection, site not specified (principal); B96.20 Unspecified Escherichia coli [E. coli] as the cause of diseases classified elsewhere
CPT/HCPCS: 81001; 87077; 87088; 87186